=== PATIENT | male | born 1965 | race Caucasian/White ===

== ENCOUNTER → 2018-03-23 | Outpatient (CLI) | payer BC ==
--- NOTE | 2018-03-23 12:17 | XR ---
EXAMINATION TYPE: XR lumbosacral spine min 4V DATE OF EXAM: 03/23/2018 CLINICAL HISTORY: pain COMPARISON: NONE TECHNIQUE: Frontal, lateral, and oblique images of the lumbar spine are obtained. FINDINGS: There are 5 lumbar type vertebral bodies identified. The lumbar spine shows satisfactory alignment without evidence of acute fracture or dislocation. Vertebral body heights are within normal limits. Disc spaces are mildly narrowed. The overlying soft tissue appears unremarkable. IMPRESSION: No acute fracture or dislocation is seen in the lumbar spine.ICD 10 NO FRACTURE, INITIAL EVALUATION
== END | disposition home or self-care (01) ==
LOC: RADXRMAIN 11:28
PROVIDERS: ATTEND Family Medicine
DX: M54.5 Low back pain (principal)
CPT/HCPCS: 72110

== ENCOUNTER → 2018-04-27 | Outpatient (CLI) | payer BC ==
[2018-04-27 08:23] LABS: Blood Urea Nitrogen 13 mg/dL (9-20)
--- NOTE | 2018-04-27 09:56 | MR ---
EXAMINATION TYPE: MR lumbar spine wo/w con DATE OF EXAM: 04/27/2018 COMPARISON: 10/18/2014 HISTORY: Pain, Numbness from rt side buttocks into leg TECHNIQUE: T1 and T2 axial and sagittal images of the lumbar spine are submitted. FINDINGS: There is no abnormal signal seen within the visualized spinal cord or paraspinal soft tissu es. Stable simple appearing left renal cyst. At L1-2 there is Normal disc appearance without desiccation. No herniation, protrusion or disc bulgin g. No canal stenosis is present. Foramina are patent bilaterally. At L2-3 there is Normal disc appearance without desiccation. No herniation, protrusion or disc bulgin g. No canal stenosis is present. Foramina are patent bilaterally. At L3-4 there is loss of disc signal and space. There is facet arthropathy and circumferential disc b ulging greater central component resulting in moderate canal stenosis and bilateral foraminal encroac hment greater on the right. Discogenic marrow changes are seen. Correlate for previous surgery at thi s level. At L4-5 there is large right paracentral disc herniation with severe compression of the thecal sac an d narrowing of the right neural foramina. Facet arthropathy noted. At L5-S1 there is marked facet arthropathy. No foraminal encroachment or canal stenosis. No disc dominique iation. IMPRESSION: 1. Progression of a right-sided large disc herniation L4-L5 with severe compression of the thecal sac . 2. There is persistent circumferential disc bulging and degenerative disc disease at L3-L4. Appears t o be mild central stenosis and bilateral foraminal encroachment greater on the right.
== END | disposition home or self-care (01) ==
LOC: RADMRIMAIN 07:42
PROVIDERS: ATTEND Family Medicine
DX: M51.16 Intervertebral disc disorders with radiculopathy, lumbar region (principal)
CPT/HCPCS: 82565; 84520; 72158; 36415; A9581

== ENCOUNTER 2018-05-05 20:15 | Emergency (ER) | payer BC ==
[2018-05-05 20:27] VITALS: BP 181/100; PULSE 83; RESP 18; TEMP 98.3
[2018-05-05] MEDS ORDERED: HYDROcodone/APAP 5-325MG 1 EACH TAB PO STA (21:11)
--- NOTE | 2018-05-05 21:18 | ED ---
General Adult HPI - General Chief complaint: Recheck/Abnormal Lab/Rx Stated complaint: rt leg pain Time Seen by Provider: 05/05/18 20:41 Source: patient Mode of arrival: ambulatory Limitations: no limitations - History of Present Illness Initial comments: 53-year-old male past medical history of chronic low back pain, multiple disc herniations and previous "back decompression"performed by Dr. Knowles who presents today for low back pain. Pt stated that since March 14 after lifting a heavy water jug he has increasing low back pain from his baseline. He said it felt identical to when he had a herniated disc in the past. Pt visited Dr. Lara his PCP for this pain who can steroid injection, flexeril, a PO steroid and tramadol. Patient states that this did not work and alleviating low back pain. He was then referred by Dr. Hendricks for 2 weeks of physical therapy at the end of February beginning of March, he patient stated that this actually worsen the low back pain. Patient was finally referred to Dr. Knowles for further evaluation and treatment. An MRI scheduled for 04/27/2018 her at [facility]. Pt contacted Benson's office last week to make an appointment after MRI was performed but he has never heard back. Pt presents today asking for his results from the MRI performed and something to help with the pain. Pt denied bladder/fecal incontinence or retention, loss of sensation of the LE, muscle weakness or paralysis of the LE, fever, chills, recent weight loss, IVDU. Pt did admit to decreased sensation over right great toe and bottom of right foot, and well as 8/10 low back pain that is sharp and constant increasing with movement that radiates down the right leg. Patient denies any recent shortness of breath, chest pain,abdominal pain, nausea or vomiting, numbness or tingling, dysuria or hematuria, constipation or diarrhea, headaches or visual changes, or any other complaints. - Related Data Previous Rx's Medication Instructions Recorded HYDROcodone/APAP 5-325MG [Sterling 1 tab PO Q6HR PRN 2 Days #8 tab 05/05/18 5-325] Allergies Allergy/AdvReac Type Severity Reaction Status Date / Time No Known Allergies Allergy Verified 05/05/18 20:27 Review of Systems ROS Statement: Those systems with pertinent positive or pertinent negative responses have been documented in the HPI. ROS Other: All systems not noted in ROS Statement are negative. Constitutional: Denies: fever, chills, weight change, night sweats Respiratory: Denies: cough, dyspnea, wheezes, hemoptysis, stridor Cardiovascular: Denies: chest pain, palpitations, dyspnea on exertion, orthopnea , edema Gastrointestinal: Denies: abdominal pain Genitourinary: Denies: urgency, dysuria, frequency, discharge Musculoskeletal: Reports: as per HPI, back pain Skin: Denies: rash, lesions, change in color Neurological: Reports: paresthesias. Denies: headache, weakness, numbness, confusion, abnormal gait Past Medical History Past Medical History: GERD/Reflux, Hypertension History of Any Multi-Drug Resistant Organisms: None Reported Past Surgical History: Adenoidectomy Past Psychological History: No Psychological Hx Reported Smoking Status: Never smoker Past Alcohol Use History: Occasional Past Drug Use History: None Reported General Exam - General Exam Comments Initial Comments: General: The patient is awake and alert, in no distress, and does not appear acutely ill. Eye: Pupils are equal, round and reactive to light, extra-ocular movements are intact. No nystagmus. There is normal conjunctiva bilaterally. No signs of icterus. Ears, nose, mouth and throat: There are moist mucous membranes and no oral lesions. Neck: The neck is supple, there is no tenderness or JVD. Cardiovascular: There is a regular rate and rhythm. No murmur, rub or gallop is appreciated. Respiratory: Lungs are clear to auscultation, respirations are non-labored, breath sounds are equal. No wheezes, stridor, rales, or rhonchi. Gastrointestinal: Soft, non-distended, non-tender abdomen without masses or organomegaly noted. There is no rebound or guarding present. No CVA tenderness. Bowel sounds are unremarkable. Musculoskeletal: The patient is able to forward flex and hyperextend however discomfort and lumbar spine. Patient able to rotate and laterally flex without difficult. Patient has midline tenderness to the lumbar spine. No paravertebral tendernes. (+) SLR b/l. R>L . mildly hyperreflexia on the right patellar DTR, normal achilles DTRs bilaterally. Strength 5/5 at the hips, knees , ankles and feet of the lower extremities, equally bilaterally. Sensation intact of the lower extremity bilaterally. Patient can feel over the plantar aspect of the right foot however he admits to decrease sense of sensation over the right great toe. +2 dorsalis pedis and radial Pulses equal bilaterally 2+. Patient is able to heel and toe walk with discomfort. No ataxia. Patient is able to ambulate without difficulty. Neurological: A&O x 3. CN II-XII intact, There are no obvious motor or sensory deficits. Coordination appears grossly intact. Speech is normal. Skin: Skin is warm and dry and no rashes or lesions are noted. Psychiatric: Cooperative, appropriate mood & affect, normal judgment. . Limitations: no limitations Course Vital Signs 05/05/18 20:23 Temperature 98.3 F Pulse Rate 83 Respiratory 18 Rate Blood Pressure 181/100 O2 Sat by Pulse 99 Oximetry Medical Decision Making - Medical Decision Making MRI her results were reviewed from April 27 revealing that there was moderate spinal stenosis at L3-L4 and severe compression of the thecal sac narrowing of the right neural foramen at L4-L5, this appears to be consistent with physical examination findings. Results discussed with patient. Given MRI results, and patient stating that he has not taken a tramadol today because it doesn't help his low back pain, he was given a norco 5mg for back pain. Pt stating there is no worsening pain since completely PT mid March and it feels like when he had a lumbar herniation in the past and because pt denies urinary symptoms, chest pain, dyspnea or any other associated symptoms I have low suspicion for a or cardiac source of the low back pain at this time. Pt does not exhibit signs or symptoms of cauda equina at this time. Pt did not want further imaging he just wanted something to help with the pain and to actually find out the results of MRI. Case was discussed with Dr. Harris in detail. Given pt + MRI for severe right foramen compression we prescribed norco 5mg 2 day supply for pain mgmt until follow-up with Dr. Knowles. Pt was educated thoroughly on the risks if he uses muscles relaxants, other opiods including his flexeril and tramadol prescription or benzodiazapines. Pt understood and appears to be reliable. Opiod start talking form discussed in great detail. Pt was instructed to return to the ER if symptoms worsen or change. He was given referral for orthopedic surgery at if he did not hear from Dr. Knowles in the next day or so. PT discharged instable condition. Pt stated he was pleased with plan prior to d/c. Disposition Clinical Impression: Low back pain Disposition: HOME SELF-CARE Condition: Good Instructions: Lumbar Disc Herniation (ED) Prescriptions: HYDROcodone/APAP 5-325MG [Sterling 5-325] 1 tab PO Q6HR PRN 2 Days #8 tab PRN Reason: Pain Is patient prescribed a controlled substance at d/c from ED?: Yes When asked, does pt state using other controlled substances?: Yes If prescribed controlled substance>3 days was MAPS reviewed?: Yes (NARX score 250) If opioid is for acute pain is fill amount 7 days or less?: Yes If Rx opioid, was Start Talking consent form obtained?: Yes Referrals: Girish Lara MD [Primary Care Provider] - 1-2 days Bubba Madison MD [STAFF PHYSICIAN] - 1-2 days Time of Disposition: 21:18
== END 2018-05-05 21:22 | disposition home or self-care (01) ==
LOC: EC 20:15
DX: M54.5 Low back pain (principal); M79.604 Pain in right leg
CPT/HCPCS: 99283

== ENCOUNTER → 2018-05-14 | Outpatient (CLI) | payer BC ==
[2018-05-14 11:45] LABS: Basophils % (A) 1 %; Eosinophils # (A) 0.1 k/uL (0-0.7); Eosinophils % (A) 2 %; HCT 43.2 % (39.0-53.0); HGB 14.8 gm/dL (13.0-17.5); Lymphocytes % (A) 29 %; MCH 29.7 pg (25.0-35.0); MCHC 34.3 g/dL (31.0-37.0); MCV 86.7 fL (80.0-100.0); Mean Platelet Volume 6.6; Monocytes # (A) 0.4 k/uL (0-1.0); Monocytes % (A) 5 %; Neutrophils # (A) 4.2 k/uL (1.3-7.7); Neutrophils % (A) 62 %; Platelet Count 213 k/uL (150-450); RBC 4.99 m/uL (4.30-5.90); RDW 13.2 % (11.5-15.5); WBC 6.8 k/uL (3.8-10.6)
[2018-05-14 11:57] LABS: Partial Thromboplastin Time 22.7 sec (22.0-30.0); Prothrombin Time 9.6 sec (9.0-12.0)
[2018-05-14 12:10] LABS: Appearance,Urine Clear (Clear); Bilirubin,Urine Negative (Negative); Blood,Urine Trace (Negative); Color,Urine Yellow; Glucose,Urine (UA) Negative (Negative); Ketones,Urine Negative (Negative); Leukocyte Esterase,Urine Negative (Negative); Mucus,Urine Rare /hpf; Nitrite,Urine Negative (Negative); Protein,Urine Negative (Negative); RBC,Urine 2 /hpf (0-5); Urobilinogen,Urine <2.0 mg/dL (<2.0)
[2018-05-14 12:23] LABS: ALT 49 U/L (21-72); AST 30 U/L (17-59); Albumin 4.3 g/dL (3.5-5.0); Alkaline Phosphatase 80 U/L (38-126); Anion Gap 7 mmol/L; Blood Urea Nitrogen 14 mg/dL (9-20); Calcium 9.8 mg/dL (8.4-10.2); Carbon Dioxide 27 mmol/L (22-30); Chloride 107 mmol/L (98-107); Glucose 112 mg/dL (74-99); Potassium 4.9 mmol/L (3.5-5.1); Sodium 141 mmol/L (137-145); Total Bilirubin 0.5 mg/dL (0.2-1.3); Total Protein 7.1 g/dL (6.3-8.2)
== END | disposition home or self-care (01) ==
LOC: LABWHC1 11:13
DX: M51.26 Other intervertebral disc displacement, lumbar region (principal)
CPT/HCPCS: 36415; 80053; 81001; 85025; 85610; 85730; 93005

== ENCOUNTER → 2018-06-14 | Day surgery (SDC) | payer BC ==
[2018-06-11 10:03] VITALS: BMI 30.5
[~2018-06-14] MED LIST: LACTATED RINGERS 1,000 ML IV SCH; LIDOCAINE 1% 20 ML VIAL (10MG/ML) FOR IV START INTRADERMA ONE; LIDOCAINE 1% INJ 10MG/ML (20 ML MDV) ONE; PROPOFOL 10 MG/ML 20 ML VIAL IV ONE
[2018-06-14] MEDS: MIDAZOLAM 2 MG/2 ML VIAL IV ONE ×2 (11:57→13:14)
[2018-06-14 12:00] VITALS: RESP 16; TEMP 97
--- NOTE | 2018-06-14 14:04 | P.GSHP ---
History of Present Illness H&P Date: 06/14/18 Chief Complaint: GERD, GI bleed This a 53-year-old male referred from Dr. Lara. Patient rents today for EGD and colonoscopy. He's had issues with GERD and GI bleed. Past Medical History Past Medical History: GERD/Reflux, Hypertension Additional Past Medical History / Comment(s): seasonal allergies, intermittent rectal bleeding History of Any Multi-Drug Resistant Organisms: None Reported Past Surgical History: Back Surgery, Cholecystectomy Additional Past Surgical History / Comment(s): back surg x2-most recent 1 month ago @[facility] Past Anesthesia/Blood Transfusion Reactions: No Reported Reaction Smoking Status: Never smoker - Past Family History Father Family Medical History: Cancer Brother(s) Family Medical History: Cancer Medications and Allergies Home Medications Medication Instructions Recorded Confirmed Type ALPRAZolam [Xanax] 0.5 mg PO BID 06/11/18 06/14/18 History Lisinopril [Zestril] 40 mg PO DAILY 06/11/18 06/14/18 History Pantoprazole Sodium [Protonix] 40 mg PO DAILY 06/11/18 06/14/18 History Allergies Allergy/AdvReac Type Severity Reaction Status Date / Time No Known Allergies Allergy Verified 06/11/18 10:00 Surgical - Exam Vital Signs Temp Pulse Resp BP Pulse Ox 97 F L 69 16 134/82 100 06/14/18 11:59 06/14/18 11:59 06/14/18 11:59 06/14/18 11:59 06/14/18 11:59 - General well developed, no distress - Eyes PERRL - ENT normal pinna - Neck no masses - Respiratory normal expansion - Cardiovascular Rhythm: regular - Abdomen Abdomen: soft, non tender Assessment and Plan Assessment: GERD, GI bleed. We'll perform EGD and colonoscopy.
--- NOTE | 2018-06-14 14:18 | P.OP ---
Date of Procedure: 06/14/18 Preoperative Diagnosis: GERD GI bleed Postoperative Diagnosis: Antral gastritis Small sliding hiatal hernia Mild esophagitis Procedure(s) Performed: EGD Colonoscopy Anesthesia: MAC Surgeon: Maximiliano Yañez Pathology: other (Antrum, esophagus) Condition: stable Disposition: PACU Description of Procedure: The patient's placed on the endoscopy table in the lateral position. He received IV sedation. The gastroscope placed oropharynx passed in the esophagus and stomach. Scope was then placed through the pylorus. The first and second portion of the duodenum appeared normal. Scope was then brought back the antrum and this was mildly inflamed. A biopsies performed. The scope was then retroflexed and there was a small sliding hiatal hernia. The GE junction was at 39 cm. The distal esophagus appeared minimally inflamed a biopsies performed. The proximal esophagus appeared normal. Scope was withdrawn for patient. Next digital rectal exam was performed which revealed no abnormalities. The prostate was symmetric without nodules. The flexible colonoscope was then placed patient anus passed rotator entire colon. The ileocecal valve sutures. The cecum, ascending and transverse colon appeared normal. In the descending; there is mild diverticulosis. Scope was then brought back the rectum and this appeared normal. Scope was withdrawn for patient.
[2018-06-14 14:48] VITALS: PULSE 72
[2018-06-14 14:58] VITALS: BP 136/84
--- NOTE | 2018-06-17 08:28 | CDI ---
Date: 06/17/18 CDS/Clinical Account Specialist Name: Ally Andre Phone: If any questions, call Yoly Powers House Coordinator at [phone] Patient Name: Nicola Rodriguez Admit Date: 06/14/18 Discharge Date: 06/14/18 ATTENTION: The [facility] Coding Staff appreciate your assistance in clarifying documentation. Please respond to the clarification below the line at the bottom and electronically sign. The [facility] Coding staff will review the response and follow-up if needed. Please note: Queries are made part of the Legal Health Record. If you have any questions, please contact the House Coordinator. Dear Dr. Yañez, Please provide clarification if the GI bleed is secondary to any of the conditions found during the examination (gastritis, diverticulosis). Thank you for your kind consideration. I am unable to determine the source of GI bleed. MTDD
== END ==
LOC: ORWHC2ENDO 11:17
PROVIDERS: ATTEND Surgery
DX: K44.9 Diaphragmatic hernia without obstruction or gangrene (principal); K57.30 Diverticulosis of large intestine without perforation or abscess without bleeding; K92.2 Gastrointestinal hemorrhage, unspecified; K29.50 Unspecified chronic gastritis without bleeding; K21.0 Gastro-esophageal reflux disease with esophagitis; I10 Essential (primary) hypertension; Z79.899 Other long term (current) drug therapy
CPT/HCPCS: 88305; 45378; 43239; J2250; J2001; J2704

== ENCOUNTER → 2023-09-25 | Outpatient (CLI) | payer OTHER ==
--- NOTE | 2023-09-25 10:56 | XR ---
EXAMINATION TYPE: XR chest 2V DATE OF EXAM: 09/25/2023 9:38 AM CLINICAL INDICATION:Male, 58 years old with history of Z01.818 PRE OP C61 MALIGNANT NEOPLASM OF PROST ATE; PH[facility] COMPARISON: None TECHNIQUE: XR chest 2V Frontal and lateral views of the chest. FINDINGS: Lungs/Pleura: There is flattening of the diaphragm with increased lucency of the lungs. No evidence o f pneumothorax, pleural effusion or focal consolidation. Pulmonary vascularity: Unremarkable. Heart/mediastinum: Cardiomediastinal silhouette is unremarkable. Musculoskeletal: No acute osseous pathology. Other findings: None IMPRESSION: 1. No acute cardiopulmonary disease process. 2. COPD changes.
[2023-09-25 15:13] LABS: Basophils # (A) 0.04 X 10*3/uL (0.00-0.10); Basophils % (A) 0.6 %; Eosinophils # (A) 0.15 X 10*3/uL (0.04-0.35); Eosinophils % (A) 2.3 %; HCT 43.4 % (39.6-50.0); HGB 14.7 g/dL (13.0-17.0); Lymphocytes # (A) 1.95 X 10*3/uL (0.90-5.00); Lymphocytes % (A) 29.9 %; MCH 29.2 pg (27.0-32.0); MCHC 33.9 g/dL (32.0-37.0); MCV 86.1 FL (80.0-97.0); Mean Platelet Volume 10.4 FL (9.5-12.2); Monocytes # (A) 0.45 X 10*3/uL (0.20-1.00); Monocytes % (A) 6.9 %; NRBC Per 100 WBC 0 X 10*3/uL (0.00-0.01); Neutrophils # (A) 3.91 X 10*3/uL (1.80-7.70); Neutrophils % (A) 59.8 %; Platelet Count 175 X 10*3/uL (140-440); RBC 5.04 X 10*6/uL (4.40-5.60); RDW 13.7 % (11.5-14.5); WBC 6.53 X 10*3/uL (4.50-10.00)
[2023-09-25 15:22] LABS: BUN/Creat Ratio 13.22 Ratio (12.00-20.00); Blood Urea Nitrogen 11.9 mg/dL (9.0-27.0); Carbon Dioxide 26.2 mmol/L (21.6-31.8); Chloride 104 mmol/L (96-109); Glucose 105 mg/dL (70-110); Potassium 4.5 mmol/L (3.5-5.5); Sodium 142 mmol/L (135-145)
[2023-09-25 15:23] LABS: Calcium 9.4 mg/dL (8.7-10.3)
[2023-09-25 16:00] LABS: Appearance,Urine Clear (Clear); Bilirubin,Urine Negative (Negative); Blood,Urine Negative (Negative); Color,Urine Dark Yellow (Yellow); Ketones,Urine Trace (Negative); Nitrite,Urine Negative (Negative); PH, Urine 6.5; Specific Gravity,Urine 1.022 (1.001-1.030)
[2023-09-25 16:06] LABS: Bacteria,Urine None Seen (None Seen)
== END | disposition home or self-care (01) ==
LOC: LABWHC1 09:08
PROVIDERS: ATTEND Urology
DX: Z01.818 Encounter for other preprocedural examination (principal); I10 Essential (primary) hypertension; C61 Malignant neoplasm of prostate; J44.9 Chronic obstructive pulmonary disease, unspecified; R00.1 Bradycardia, unspecified
CPT/HCPCS: 36415; 71046; 80048; 81001; 85025; 86850; 86900; 86901; 87086; 93005

== ENCOUNTER 2023-10-02 09:36 | Day surgery (SDC) | payer OTHER ==
[2023-09-29 09:26] VITALS: BMI 31.1
[2023-10-02] MEDS ORDERED: DEXAMETHASONE SOD PHOSPHATE 4 MG/ML 1 ML VIAL IV ONE (09:38)
[2023-10-02] MEDS ORDERED: ONDANSETRON 4 MG/2 ML VIAL IVP ONE ×2 (09:38→10:17)
[2023-10-02] MEDS ORDERED: HYDROmorphone 0.5 MG/0.5 ML SYRINGE IVP PRN (09:38)
[2023-10-02] MEDS: LACTATED RINGERS 1,000 ML IV SCH (10:09)
[2023-10-02] MEDS ORDERED: DEXAMETHASONE SOD PHOSPHATE 4 MG/ML 1 ML VIAL IVP ONE (10:17)
[2023-10-02] MEDS ORDERED: MIDAZOLAM 2 MG/2 ML VIAL IVP ONE ×2 (10:17→10:49)
[2023-10-02] MEDS ORDERED: LACTATED RINGERS 1,000 ML IV ONE ×2 (10:19)
[2023-10-02] MEDS ORDERED: fentaNYL (PF) 50 MCG/1 ML VIAL IVP ONE (10:48)
--- NOTE | 2023-10-02 11:13 | P.ANPRN ---
Procedure Note - Anesthesia - Nerve Block Performed Bilateral Erector Spinae Single Time Out Performed: Yes (1048) Date of Procedure: 10/02/23 Location of Patient: PreOp Indication: Acute Post-Operative Pain, Dx/Pain Location (b/l abdomen), Requested by Surgeon Specifically requested for management of pain by DrIsrael: Deny Murdock Sedation Type: Sedate with meaningful contact maintained Preparation: Sterile Prep Position: Prone Needle Types: Pajunk Needle Gauge: 21 Ultrasound used to visualize needle placement: Yes Ultrasound used to observe medication spread: Yes Injectate: 0.5% Ropivacaine (see comment for volume) (20 cc + 10 cc of saline on each side) Blood Aspirated: No Pain Paresthesia on Injection Noted: No Resistance on Injection: Normal Image Stored and Saved: Yes Events: Uneventful and Well Tolerated
[2023-10-02] MEDS ORDERED: PROPOFOL 10 MG/ML 20 ML VIAL IV ONE (11:43)
[2023-10-02] MEDS ORDERED: ROCURONIUM 10 MG/ML (5 ML VIAL) IV ONE (11:43)
[2023-10-02] MEDS ORDERED: ePHEDrine 50 MG/ML 1 ML VIAL ONE (11:43)
[2023-10-02] MEDS ORDERED: KETAMINE HCL IN 0.9 % NACL 50 MG/5 ML SYRINGE ONE (11:43)
[2023-10-02] MEDS ORDERED: LIDOCAINE 1% INJ 10MG/ML (20 ML MDV) ONE (11:43)
[2023-10-02] MEDS ORDERED: SUCCINYLCHOLINE CHLORIDE 200 MG/10 ML VIAL IV ONE (11:43)
[2023-10-02] MEDS ORDERED: MIDAZOLAM 2 MG/2 ML VIAL ONE (11:43)
[2023-10-02] MEDS ORDERED: GLYCOPYRROLATE 0.2 MG/ML 2 ML VIAL ONE (11:43)
[2023-10-02] MEDS ORDERED: ROPIVACAINE 5 MG/ML 30 ML VIAL ONE (11:43)
[2023-10-02] MEDS ORDERED: SODIUM CHLORIDE 0.9% (PF) 10 ML VIAL ONE (11:43)
[2023-10-02] MEDS ORDERED: NEOSTIGMINE 1 MG/ML 10 ML VIAL ONE (11:43)
[2023-10-02] MEDS ORDERED: HYDROmorphone (PF) 1 MG/ML ONE (11:43)
[2023-10-02] MEDS ORDERED: fentaNYL (PF) 50 MCG/ML 2 ML AMP ONE (11:43)
--- NOTE | 2023-10-02 11:49 | P.HPIHPCON ---
History of Present Illness H&P Date: 10/02/23 Chief Complaint: Prostate cancer This is a 58-year-old male with hx of sheridan 7 (3+4) prostate cancer. Option of a radical prostatectomy versus radiation therapy was discussed with him in detail. Risk and benefit of each approach were discussed. Agree to proceed with robotic radical prostatectomy, aware of the risk which includes but not limited to bleeding, infection, Erectile dysfunction, urinary incontinence. Discussed need for postoperative surveillance and potential of cancer recurrence and potential of needing additional treatments. Risk of anesthesia was also discussed. Discussed also risk of injury to nearby organs. He understood all the risk and agreed to proceed Consent for Procedure: I have explained the operation/procedure to the patient, including the risks, benefits, side effects, alternative therapies (including not receiving the proposed treatment or service), the likelihood of the patient achieving his/her goals, and potential recuperation problems for the procedure/sedation/analgesia, as well as any blood products, if indicated. I also explained to the patient the risks, benefits and side effects of the alternatives, as well as the risks related to not receiving the proposed procedure, care, treatment, or services. Past Medical History Past Medical History: Cancer, GERD/Reflux, Hypertension Additional Past Medical History / Comment(s): prostate cancer History of Any Multi-Drug Resistant Organisms: None Reported Past Surgical History: Back Surgery, Cholecystectomy Additional Past Surgical History / Comment(s): lower back surg x2 , hernia surgery, Past Anesthesia/Blood Transfusion Reactions: No Reported Reaction Past Psychological History: Anxiety Smoking Status: Former smoker Past Alcohol Use History: Daily Additional Past Alcohol Use History / Comment(s): quit smoking 10-15 years ago., ( 45-48 yrs old) smoked up to 2ppd., started smoking age 15. usually drinks 3 beers daily. Past Drug Use History: None Reported - Past Family History Father Family Medical History: Cancer Brother(s) Family Medical History: Cancer Medications and Allergies Home Medications Medication Instructions Recorded Confirmed Type Escitalopram [Lexapro] 20 mg PO DAILY 09/29/23 10/02/23 History Lansoprazole [Prevacid] 30 mg PO DAILY 09/29/23 10/02/23 History Metoprolol Tartrate [Lopressor] 50 mg PO BID 09/29/23 10/02/23 History Valsartan 80 mg PO DAILY 09/29/23 10/02/23 History amLODIPine [Norvasc] 5 mg PO DAILY 09/29/23 10/02/23 History Allergies Allergy/AdvReac Type Severity Reaction Status Date / Time lansoprazole AdvReac Unknown Rash/Hives Verified 10/02/23 10:00 Surgical - Exam Vital Signs Temp Pulse Resp BP Pulse Ox 97.1 F L 62 16 154/83 98 10/02/23 09:59 10/02/23 09:59 10/02/23 09:59 10/02/23 09:59 10/02/23 09:59
[2023-10-02] MEDS ORDERED: BUPIVACAINE (PF) 0.25% 30 ML VIAL SQ ONE ×4 (12:35→14:59)
[2023-10-02] MEDS ORDERED: ONDANSETRON 4 MG/2 ML VIAL IVP PRN (15:16)
[2023-10-02] MEDS ORDERED: HYDROcodone/APAP 5-325MG 1 EACH TAB PO PRN (15:17)
--- NOTE | 2023-10-02 15:21 | P.OP ---
Date of Procedure: 10/02/23 Preoperative Diagnosis: Prostate cancer Postoperative Diagnosis: Same Procedure(s) Performed: Robotic-assisted laparoscopic radical prostatectomy Implants: none Anesthesia: MUSA Surgeon: Deny Murdock Estimated Blood Loss (ml): 100 Pathology: other (Prostate and bilateral seminal vesicles) Condition: stable Disposition: PACU Indications for Procedure: This is a 58-year-old male with hx of sheridan 7 (3+4) prostate cancer. Option of a radical prostatectomy versus radiation therapy was discussed with him in detail. Risk and benefit of each approach were discussed. Agree to proceed with robotic radical prostatectomy, aware of the risk which includes but not limited to bleeding, infection, Erectile dysfunction, urinary incontinence. Discussed need for postoperative surveillance and potential of cancer recurrence and potential of needing additional treatments. Risk of anesthesia was also discussed. Discussed also risk of injury to nearby organs. He understood all the risk and agreed to proceed Description of Procedure: After preoperative antibiotics were started, the patient was taken to the operating room. Anesthesia was induced and the patient was placed in a supine position, with adequate padding of the pressure points, shoulders, back, legs and arms. He was then prepped and draped in the standard fashion. A critical pause was performed using two patient identifiers. A 16F royal catheter was placed to gravity drainage. A pneumo-peritoneum was created with placement of a Veress needle to 20 mm Hg without complication, and a 8 Fr trocar was placed above the umbillicus. Under direct vision a 8mm robotic ports was placed lateral to each rectus slightly below the camera port. The left iliac fossa 8mm port was placed. The right activity assistant right iliac fossa 12mm port and right paramedian 5mm portwere placed. After the patient was placed in the trendelenberg position, the robot was then docked to the 8mm robotic ports and then each robotic arm and tower was checked in relation to the patient's legs and hands to avoid inadvertent compression. The peritoneal cavity was inspected. An inverted U-shaped incision began laterally to the left medial umbilical ligament and extended high across the midline to the right umbilical ligament. The limbs of the "U" extended to the level of the vasa on both sides. We next developed the preperitoneal space and the space of Retzius. Cautery was used to dissected the bladder away from the prostate. After the anterior bladder neck was incised and the bladder entered the the posterior bladder neck was exposed and the ureteral orifces identified. The posterior bladder neck was then incised and dissected away from the prostate. The vas and the seminal vesicles were now exposed and dissected to their insertions into the prostate and were not spared. The posterior layer of the Denonvillier's fascia was incised to enter kerry the plane between prostate and perirectal fat. Each lateral pedicle was controlled with clips and cautery for hemostasis. Complete nerve preservation was performed bilaterally The puboprostatic ligament was incised where it inserted into the apex of the prostate and a plane between urethra and dorsal venous complex developed to expose the anterior urethral surface. The anterior wall of the urethra was transected with the cut setting a few millimeters distal to the apex of the prostate. The dorsal vein was ligated using 3-0 V lock The urethrovesical anastomosis was performed . the posterior denovillers was reapproximated using 3-0 V lock. A 6 and 6 inch 3-0 V-Lock suture was used to anastomose the urethra and bladder, starting at the 6:00 posterior position. Mucosa was secured in every stitch, to ensure a mucosa to mucosa anastomosis. The stitch was regularly cinched and the anastomosis tightened. Care was taken to not violate the ureteral orifices. The Royal catheter was advanced, the bladder filled, and the anastomosis was tested, as described above. Anastomsis was watertight at 200 mL The periumbilical fascia was closed with 1-0-PDS suture in running fashion. All ports were closed with a subcuticular 4-0 monocryl and Dermabond. Sponge, instrument, and needle counts were correct at the end of the case x2. The patient tolerated the surgery well and without complication. He awoke without difficulty and was taken to the recovery room in stable condition
[2023-10-02] MEDS ORDERED: D5-0.45% NACL WITH KCL 20MEQ/L 1,000 ML IV SCH (15:30)
[2023-10-02] MEDS: HEPARIN SODIUM,PORCINE 5,000 UNIT/ML 1 ML VIAL SQ SCH ×2 (17:25→23:02)
[2023-10-02] MEDS: D5-0.45% NACL WITH KCL 20MEQ/L 1,000 ML IV SCH (17:25)
[2023-10-02] MEDS: HYDROmorphone 1 MG/ML 1 ML SYRINGE IVP PRN ×2 (18:00→21:08)
[2023-10-02] MEDS: KETOROLAC 15 MG/ML 1 ML VIAL IVP SCH ×2 (18:07→23:05)
[2023-10-02] MEDS: METOPROLOL TARTRATE 50 MG TAB PO SCH (20:42)
[2023-10-02 22:34] VITALS: TEMP 98
[2023-10-03] MEDS: HYDROmorphone 1 MG/ML 1 ML SYRINGE IVP PRN ×2 (00:59→05:12)
[2023-10-03] MEDS: KETOROLAC 15 MG/ML 1 ML VIAL IVP SCH ×2 (05:11→11:47)
[2023-10-03] MEDS: METOPROLOL TARTRATE 50 MG TAB PO SCH (07:53)
[2023-10-03] MEDS: HEPARIN SODIUM,PORCINE 5,000 UNIT/ML 1 ML VIAL SQ SCH (07:54)
[2023-10-03 08:02] VITALS: BP 160/77; PULSE 67; RESP 13
[2023-10-03] MEDS ORDERED: amLODIPine 5 MG TAB PO SCH (09:00)
[2023-10-03] MEDS ORDERED: VALSARTAN 80 MG TAB PO SCH (09:00)
[2023-10-03] MEDS ORDERED: ESCITALOPRAM 20 MG TAB PO SCH (09:00)
[2023-10-03] MEDS ORDERED: PANTOPRAZOLE 40 MG TABLET PO SCH (09:00)
--- NOTE | 2023-10-03 09:09 | P.DS ---
Providers Attending physician: Deny Murdock MD Primary care physician: [facility] Course: This is a 58-year-old male with history of Johan 7 prostate cancer. Underwent robotic radical prostatectomy on October 02, please see op note dated Oct 02 for surgery details. Patient was admitted to the hospital postoperatively. He was discharged on postop day #1, at time of discharge he was tolerating a diet, ambulating, pain was controlled Plan - Discharge Summary Discharge Rx Participant: Yes New Discharge Prescriptions: New Ciprofloxacin HCl [Cipro] 250 mg PO Q12HR 3 Days #6 tab Ketorolac [Toradol] 10 mg PO Q6HR PRN #15 tab PRN Reason: Pain No Action Metoprolol Tartrate [Lopressor] 50 mg PO BID Valsartan 80 mg PO DAILY amLODIPine [Norvasc] 5 mg PO DAILY Escitalopram [Lexapro] 20 mg PO DAILY Lansoprazole [Prevacid] 30 mg PO DAILY Discharge Medication List Escitalopram [Lexapro] 20 mg PO DAILY 09/29/23 [History] Lansoprazole [Prevacid] 30 mg PO DAILY 09/29/23 [History] Metoprolol Tartrate [Lopressor] 50 mg PO BID 09/29/23 [History] Valsartan 80 mg PO DAILY 09/29/23 [History] amLODIPine [Norvasc] 5 mg PO DAILY 09/29/23 [History] Ciprofloxacin HCl [Cipro] 250 mg PO Q12HR 3 Days #6 tab 10/03/23 [Rx] Ketorolac [Toradol] 10 mg PO Q6HR PRN #15 tab 10/03/23 [Rx] Activity/Diet/Wound Care/Special Instructions: Increase your fluid intake No heavy lifting or straining It is normal to have blood in the urine Start your antibiotics one day prior to your follow-up
[2023-10-03] MEDS: LACTATED RINGERS 1,000 ML IV SCH (10:12)
[2023-10-03] MEDS: D5-0.45% NACL WITH KCL 20MEQ/L 1,000 ML IV SCH ×2 (10:12)
== END 2023-10-03 12:05 | disposition home or self-care (01) ==
LOC: OR 09:36 → 4SSUR 17:04 → OR 10-03 12:05
PROVIDERS: ATTEND Urology
DX: C61 Malignant neoplasm of prostate (principal); K21.9 Gastro-esophageal reflux disease without esophagitis; I10 Essential (primary) hypertension; F41.9 Anxiety disorder, unspecified; F10.90 Alcohol use, unspecified, uncomplicated; Z79.899 Other long term (current) drug therapy; Z87.891 Personal history of nicotine dependence; Z88.8 Allergy status to other drugs, medicaments and biological substances
CPT/HCPCS: 55866; S2900; 64999

== ENCOUNTER → 2023-11-09 | Outpatient (CLI) | payer OTHER | END | disposition home or self-care (01) | LOC: LABWHC1 12:10 | PROVIDERS: ATTEND Urology | DX: C61 Malignant neoplasm of prostate (principal) | CPT/HCPCS: 36415; 84153 ==

== ENCOUNTER → 2024-03-09 | Outpatient (CLI) | payer OTHER | END | disposition home or self-care (01) | LOC: LABWHC1 08:57 | PROVIDERS: ATTEND Urology | DX: C61 Malignant neoplasm of prostate (principal) | CPT/HCPCS: 36415; 84153 ==

== ENCOUNTER → 2024-09-14 | Outpatient (CLI) | payer OTHER | END | disposition home or self-care (01) | LOC: LABWHC1 10:06 | PROVIDERS: ATTEND Urology | DX: C61 Malignant neoplasm of prostate (principal) | CPT/HCPCS: 36415; 84153 ==

== ENCOUNTER → 2025-03-23 | Outpatient (CLI) | payer OTHER | END | disposition home or self-care (01) | LOC: LABWHC1 15:36 | PROVIDERS: ATTEND Urology | DX: C61 Malignant neoplasm of prostate (principal) | CPT/HCPCS: 36415; 84153 ==